=== PATIENT | female | born 1985 ===

== ENCOUNTER → 2023-04-27 09:45 | Outpatient (CLI) | payer BC, MEDICAID, SELFPAY ==
--- NOTE | 2023-04-27 | DI.US_ITS ---
Exam(s) US OB HARVINDER UMBILICAL ARTERY EXAM: US OB HARVINDER UMBILICAL ARTERY CLINICAL HISTORY: POOR GROWTH,[id number]. TECHNIQUE: Transabdominal obstetrical ultrasound was performed. COMPARISON: No exams were available for comparison FINDINGS: There is a single viable intrauterine gestation with cardiac activity identified-168 bpm . Fetus is in variable position. Placenta is anterior grade 1, with no evidence of placenta previa. Amniotic Fluid Index is within normal limits, measuring 20.45 cm. Dating parameters places approximately 26 weeks and 3 days gestational age implying SAI of July 31, 2023. BPD measures 27 weeks and 0 days Head circumference measures 27 weeks and 2 days Abdominal circumference measures 26 weeks and 2 days Femur length measures 25 weeks and 1 day There is a three-vessel umbilical cord. UMBILICAL ARTERY 3 READINGS: Proximal (placental adjacent) PI = 0.69 RI= 0.51 S/D = 2.0 Mid level umbilical cord PI = 0.74 RI= 0.52 S/D= 2.1 Distal (fetus adjacent) PI= 0.98 RI= 0.63 S/D= 2.7 IMPRESSION: 1. Single viable intrauterine gestation with HARVINDER =20.45 cm, within normal limits. 2. Umbilical artery readings performed at 26 weeks and 3 days with findings as above. When compared to 28 weeks standard, all values are less than 50th percentile DATA REPOSITORY:
== END ==
PROVIDERS: Visit Provider Advanced Practice Midwife
DX: O36.5921 Maternal care for other known or suspected poor fetal growth, second trimester, fetus 1 (principal)
CPT/HCPCS: 76816; 76820

== ENCOUNTER → 2023-05-04 03:43 | Outpatient (CLI) | payer BC, MEDICAID, SELFPAY ==
--- NOTE | 2023-05-04 | DI.US_ITS ---
Exam(s) US OB HARVINDER UMBILICAL ARTERY EXAM: US OB HARVINDER UMBILICAL ARTERY CLINICAL HISTORY: SUSPECTED POOR GROWTH O36.5990. TECHNIQUE: Transabdominal obstetrical ultrasound was performed. COMPARISON: US US OB HARVINDER UMBILICAL ARTERY from 04/27/2023 FINDINGS: There is a single viable intrauterine gestation with cardiac activity identified-148 bpm. Fetu s exhibited variable position during this examination. Placenta is anterior grade 1 with no evidence of placenta previa. Amniotic Fluid Index is within normal limits, measuring 14.67 cm. Dating parameters places at approximately 27 weeks and 6 days implying SAI of 07/28/2023. BPD measures 28 weeks and 0 days HC measures 28 weeks and 4 days AC measures 28 weeks and 1 day Femur length measures 26 weeks and 6 days Estimated weight is 1119 gm-2 pounds, 7 ounces. Fetus is at the 11th percentile on the Hadlock scale. UMBILICAL ARTERY READINGS: Proximal (placental adjacent): PI=1.22 RI=0.72 S/D= 3.6 Mid level umbilical cord: PI= 0.92 RI= 0.62 S/D= 2.6 Distal (fetus adjacent): PI = 0.58 RI = 0.42 S/D= 1.7 IMPRESSION: 1. Single viable intrauterine gestation which is approximately 27 weeks and 6 days gestational age by ultrasound dating. 2. HARVINDER =14.67 cm, within normal limits. 3. Umbilical artery readings are ABOVE 4. DATA REPOSITORY:
== END ==
PROVIDERS: Visit Provider Advanced Practice Midwife
DX: O36.5931 Maternal care for other known or suspected poor fetal growth, third trimester, fetus 1 (principal)
CPT/HCPCS: 76816; 76820

== ENCOUNTER → 2023-05-17 03:06 | Outpatient (CLI) | payer BC, MEDICAID, SELFPAY ==
--- NOTE | 2023-05-17 | DI.US_ITS ---
Exam(s) US OB HARVINDER UMBILICAL ARTERY EXAM: US OB HARVINDER UMBILICAL ARTERY CLINICAL HISTORY: POOR GROWTH O36.5990 Z34.83 O09.299. TECHNIQUE: Transabdominal obstetrical ultrasound performed. COMPARISON: US OB HARVINDER UMBILICAL ARTERY from 04/27/2023 US US OB HARVINDER UMBILICAL ARTERY from 05/04/2023 FINDINGS: Number of fetuses: 1 position: CEPHALIC Placental location: ANTERIOR No evidence of previa. BIOMETRIC DATA: BPD: 7.54cm, 30weeks 2days HC: 28.03cm, 30weeks 5days AC: 25.94cm, 30weeks 1day FL: 5.02cm, 27weeks EFW: 1,345.84g, 3lb 1.74oz, 6.4% Composite Age: 29weeks 4days SAI: 07/29/2023 Heart Rate: 126bpm Amniotic fluid index: 14.65cm. Visually, amount of fluid is within normal limits. Umbilical artery readings: Proximal (placental adjacent): PI: 1.4. RI: 0.7. S/D: 3.7 Mid level umbilical cord: PI: 1.2. RI: 0.7. S/D: 3.2. Distal (fetus adjacent): PI: 0.7. RI: 0.5. S/D: 2.0. IMPRESSION: 1. Single live intrauterine gestation as above. 2. Estimated weight is 1346gms. This is the 6th percentile. 3. Amniotic fluid index is 14.7 cm. Visually within normal limits. 4. Umbilical artery readings are as above. DATA REPOSITORY:
== END ==
PROVIDERS: Visit Provider Advanced Practice Midwife
DX: O36.5931 Maternal care for other known or suspected poor fetal growth, third trimester, fetus 1 (principal)
CPT/HCPCS: 76816; 76820

== ENCOUNTER → 2023-05-24 03:05 | Outpatient (CLI) | payer BC, MEDICAID, SELFPAY ==
--- NOTE | 2023-05-24 | DI.US_ITS ---
Exam(s) US OB HARVINDER UMBILICAL ARTERY EXAM: US OB HARVINDER UMBILICAL ARTERY CLINICAL HISTORY: UMBILICAL ARTERY DOPPLER, SUSPECTED POOR GROWTH, O36.5990. TECHNIQUE: Transabdominal obstetrical ultrasound was performed. COMPARISON: US US OB HARVINDER UMBILICAL ARTERY from 05/17/2023 FINDINGS: There is a single viable intrauterine gestation with cardiac activity identified-143 bpm . Amniotic Fluid Index is upper normal, measuring 23.20 cm. Placenta is anterior grade 1 with no evidence of placenta previa. Dating parameters places at approximately 30 weeks and 4 days gestational age implying SAI of 07/29/2023 BPD measures 31 weeks and 2 days Head circumference measures 31 weeks and 3 days Abdominal circumference measures 31 weeks and 3 days Femur length measures 27 weeks and 6 days Estimated weight is 1555 grams; 3 pound 7 ounces Fetus is at the 9th percentile on the Hadlock scale UMBILICAL ARTERY READINGS: Proximal (placental adjacent): PI= 1.29 RI=0.75 S/D= 4.0 Mid level umbilical cord: PI= 0.97 RI= 0.61 S/D=2.6 Distal (fetus adjacent): PI= 0.74 RI= 0.51 S/D=2.1 IMPRESSION: 1. Single viable intrauterine gestation which is approximately 30 weeks and 4 days gestational age by ultrasound dating. 2. HARVINDER =23.20 cm, within upper normal limits. 3. Umbilical artery readings as above. DATA REPOSITORY:
== END ==
PROVIDERS: Visit Provider Advanced Practice Midwife
DX: O36.5931 Maternal care for other known or suspected poor fetal growth, third trimester, fetus 1 (principal)
CPT/HCPCS: 76816; 76820

== ENCOUNTER → 2023-06-05 00:34 | Outpatient (CLI) | payer BC, MEDICAID, SELFPAY ==
--- NOTE | 2023-06-05 | DI.US_ITS ---
Exam(s) US OB HARVINDER UMBILICAL ARTERY EXAM: US OB HARVINDER UMBILICAL ARTERY CLINICAL HISTORY: POOR GROWTH [id number]. TECHNIQUE: Transabdominal obstetrical ultrasound performed. COMPARISON: US US OB HARVINDER UMBILICAL ARTERY from 05/24/2023 FINDINGS: Number of fetuses: 1 position: CEPHALIC, spine posteriorly located. Placental location: There is a grade 2 anterior placenta. No evidence of previa. BIOMETRIC DATA: Umbilical artery readings: Proximal (placental adjacent): PI = 1.14 RI=0.67 S/D=3.0 Mid level umbilical cord: PI=1.03 RI=0.65 S/D=2.8 Distal ( adjacent): PI=0.81 RI=0.55 S/D=2.2 Heart Rate: 128bpm Amniotic fluid index: 18.49cm. Visually, amount of fluid is within normal limits. IMPRESSION: 1. Single live intrauterine gestation as above. 2. Umbilical artery readings as above. DATA REPOSITORY:
== END ==
PROVIDERS: Visit Provider Advanced Practice Midwife
DX: O36.5920 Maternal care for other known or suspected poor fetal growth, second trimester, not applicable or unspecified (principal)
CPT/HCPCS: 76816; 76820

== ENCOUNTER → 2023-06-13 00:36 | Outpatient (CLI) | payer BC, MEDICAID, SELFPAY ==
--- NOTE | 2023-06-13 | DI.US_ITS ---
Exam(s) US OB HARVINDER UMBILICAL ARTERY EXAM: US OB HARVINDER UMBILICAL ARTERY CLINICAL HISTORY: UMBILICAL ARTERY, SUSPECTED POOR GROWTH, [id number]. TECHNIQUE: Transabdominal obstetrical ultrasound performed. COMPARISON: US US OB HARVINDER UMBILICAL ARTERY from 05/17/2023 US US OB HARVINDER UMBILICAL ARTERY from 05/24/2023 US US OB HARVINDER UMBILICAL ARTERY from 06/05/2023 FINDINGS:: Number of fetuses: One. position: Vertex. Placental location: Anterior no evidence of previa. BIOMETRIC DATA: BPD: 82mm = 33+1 weeks HC: 300mm = 33+2 weeks AC: 276mm = 31+5 weeks FL: 59 mm = 30+ 4 weeks EFW: 1807 Gms = less than 3rd percentile% Composite Age: 32 weeks 3 days SAI: 05 August 2023 Heart Rate: BPM Amniotic fluid index: 11.6 cm. Amount of fluid is visually within normal limits. Umbilical artery Doppler measurements: PI: 1.19 /proximal, 0.9 mid, 0.41 distal/placental RI: 0.7 proximal, mid 0.59, distal 0.32 S/D: 3.3 proximal, 2.4 mid, 1.5 distal IMPRESSION: size is measuring 2 weeks smaller than projected gestational age. DATA REPOSITORY:
== END ==
PROVIDERS: Visit Provider Advanced Practice Midwife
DX: O36.5931 Maternal care for other known or suspected poor fetal growth, third trimester, fetus 1 (principal)
CPT/HCPCS: 76816; 76820